=== PATIENT | female | born 1955 | race Caucasian/White ===

== ENCOUNTER 2019-01-14 11:00 | Emergency (ER) | payer BC, MEDICAID ==
[~2019-01-14] VITALS: Ht 149.9 cm; Wt 57.2 kg
[~2019-01-14 11:00] MED LIST: ASPI-817 PO; ATOR40TA68 PO; AZIT250T PO; CALC1TAB98 PO; CITA10TA10 PO; D-ME118S6 PO; DOCU-144 PO; FAMO20TA18 PO; HYDR30CR75 PR; LOSA25TA12 PO; MTF1000T PO; TRAM50TA2 PO; TRAZ-111 PO
[2019-01-14 11:09] VITALS: BP 148/70; PULSE 72; RESP 18; Ht 149.9 cm; Wt 57.2 kg
== END 2019-01-14 13:01 | disposition home or self-care (01) ==
LOC: FTE 11:00
DX: K64.8 Other hemorrhoids (principal); E11.9 Type 2 diabetes mellitus without complications; I10 Essential (primary) hypertension; Z79.82 Long term (current) use of aspirin; Z79.84 Long term (current) use of oral hypoglycemic drugs
CPT/HCPCS: 36415; 80053; 85025; 99284